=== PATIENT | female | born 1955 | race Caucasian/White ===

== ENCOUNTER → 2017-09-06 | Day surgery (SDC) | payer BC ==
[~2017-09-06] MED LIST: AMITIZA24 MCG PO; AMITRIPTYLINE H25 MG PO; ATORVASTATIN CA20 MG PO; CALCIUM 500+D1 EACH PO; CO Q-10100 MG PO; DIOVAN80 MG PO; FENTANYL CITRATE/PF 100MCG/2 ML INJ ONE; FERROUS SULFAT325 MG PO; GLUCOSAMINE1000 MG PO; IPRATROPIU0.2 MG/1 M NEB; LIDOCAINE HCL 2% LOCAL INJ 5 ML SDV VIAL INJ ONE; LISINOPRIL2.5 MG PO; METFORMIN HCL500 MG PO; METOPROLOL TART50 MG PO; MIDAZOLAM HCL 2 MG/2 ML VIAL ONE; MULTI-VITAMIN1 EACH PO; NEXIUM40 MG PO; PRAVASTATIN SOD40 MG PO; PROPOFOL IV EMULSION 10 MG/ML 50 ML VIAL ONE; VIMOVO PO
--- OUTSIDE RECORDS SUMMARY | 2017-09-06 07:17 | XMS REPORT | Summary of Care ---
Author Author NOHEMI CONTEH M.D. Organization Unknown Address Unknown Phone Unavailable Care Team Providers Care Associate Professor Of Biblical Studies Name Role Phone NOHEMI CONTEH M.D. Unavailable Unavailable Unavailable Unavailable Functional Status Name Dates Details Functional status health issues are not documented Status: Name Dates Details Cognitive status health issues are not documented Status: Problems Name Dates Details Rhinitis, chronic (472.0, J31.0) Status: Active Neuropathy (355.9, G62.9) Status: Active Family history of Malignant neoplasm of colon, unspecified part of colon (153.9 , C18.9) Status: Active Bladder prolapse Status: Active History of hydrocephalus (V12.49, Z86.69) Status: Resolved Hiatal hernia (553.3, K44.9) Status: Active History of stroke (V12.54, Z86.73) Status: Resolved Cervical spondylosis without myelopathy (721.0, M47.812) Status: Active Cervical spinal stenosis (723.0, M48.02) Status: Active Abdominal pain, diffuse (789.00, R10.84) Status: Active Nausea (787.02, R11.0) Status: Active Colon polyp (211.3, K63.5) Status: Active Controlled type 2 diabetes mellitus without complication, without long-term current use of insulin (250.00, E11.9) Status: Active Essential hypertension (401.9, I10) Status: Active Gastroesophageal reflux disease (530.81, K21.9) Status: Active Hyperlipidemia (272.4, E78.5) Status: Active Paroxysmal SVT (supraventricular tachycardia) (427.0, I47.1) Status: Active Breast cancer screening by mammogram (V76.12, Z12.31) Status: Active Contracture of joint of left foot (718.47, M24.575) Status: Active Tubular adenoma of colon (211.3, D12.6) Status: Active Screen for colon cancer (V76.51, Z12.11) Status: Active Abnormal CBC (790.6, R79.89) Status: Active Other iron deficiency anemia (280.8, D50.8) Status: Active Medications Name Dates Details Metoprolol Tartrate 50 MG Oral Tablet TAKE 1 TABLET EVERY 12 HOURS Quantity: 180 SATTAR M.D., NOHEMI * Start : 18-Aug-2017 Active Esomeprazole Magnesium 40 MG Oral Capsule Delayed Release take 1 capsule every morning * Quantity: 90 Refills: 1 SATTAR M.D., NOHEMI * Start : 16-Jul-2017 Active Amitriptyline HCl - 25 MG Oral Tablet TAKE 1 TABLET BY MOUTH AT BEDTIME * Refills: 2 Active 30 Tablet Pack Multivitamins TABS * Refills: 0 Active Calcium CAPS * Refills: 0 Active Vitamin D CAPS * Refills: 0 Active MetFORMIN HCl - 500 MG Oral Tablet TAKE 1 TABLET TWICE A DAY PREMEAL BREAKFAST AND SUPPER * Quantity: 180 Refills: 0 SATTAR M.D., NOHEMI * Start : 09-Jun-2017 Active Atorvastatin Calcium 40 MG Oral Tablet TAKE 1 TABLET DAILY * Quantity: 90 Refills: 0 SATTAR M.D., NOHEMI * Start : 15-Aug-2016 Active Co Q 10 CAPS * Refills: 0 Active Ipratropium [place] 0.03 % Nasal Solution USE 2 SPRAYS IN EACH NOSTRIL 3 TIMES DAILY NEEDED FOR NASAL CONGESTION * Quantity: 1 Refills: 0 * Start : 14-Jul-2017 Active 30 ML Bottle Lisinopril 5 MG Oral Tablet TAKE 1/2 TABLET BY MOUTH EVERY DAY * Quantity: 90 Refills: 0 SATTAR M.D., NOHEMI * Start : 14-Jul-2017 Active Ferrous Sulfate 325 (65 Fe) MG Oral Tablet TAKE 1 TABLET 3 TIMES DAILY WITH FOOD. * Quantity: 90 Refills: 1 SATTAR M.D., NOHEMI * Start : 11-Aug-2017 Active Colace 100 MG Oral Capsule 1 TO 2 CAPS PO DAILY FOR CONSTIPATION * Quantity: 60 Refills: 2 SATTAR M.D., NOHEMI * Start : 11-Aug-2017 Active Allergies and Adverse Reactions Name Dates Details No Known Drug Allergies (Allergy) Status: Active Past Medical History Name Dates Details History of hydrocephalus (V12.49, Z86.69) Status: Resolved History of stroke (V12.54, Z86.73) Status: Resolved Procedures Procedure Dates Details [QLH] CBC (INCLUDES DIFF/PLT) Date: 05-Aug-2017 [Q] IRON, TIBC AND FERRITIN PANEL Date: 05-Aug-2017 [place] Digital Mammo Screening Marcell [id number] Date: 14-Jul-2017 History of Foot surgery Completed History of Hysterectomy total Completed History of Hydrocele repair Completed Immunization Name Dates Details Pneumococcal polysaccharide vaccine, 23 valent on: 28-Sep-2010 Zoster (Zostavax) on: 29-Jan-2014 Flulaval Quadrivalent Intramuscular Suspension on: 01-Jan-2016 Fluzone Quadrivalent 0.5 ML Intramuscular Suspension on: 20-Dec-2016 Family History Name Dates Details Family history of hypertension (V17.49, Z82.49) Status: Active Family history of hyperlipidemia (V18.19, Z83.49) Status: Active Family history of diabetes mellitus (V18.0, Z83.3) Status: Active Name Dates Details Family history of malignant neoplasm of prostate (V16.42, Z80.42) Status: Active Family history of Malignant neoplasm of colon, unspecified part of colon (153.9 , C18.9) Status: Active Social History Name Dates Details - Status: Name Dates Details Never smoker Vital Signs Date Test Result Details No Known Vitals to report Results Date Description Value Details [id number] [QL] LIPID PANEL CHOLESTEROL, TOTAL 141 mg/dl (Normal) Range: <200 HDL CHOLESTEROL 61 mg/dl (Normal) Range: >50 TRIGLYCERIDES 106 mg/dl (Normal) Range: <150 LDL-CHOLESTEROL 61 {MG/DL__CAL} (Normal) Comments: Reference range: <100 Desirable range <100 mg/dL for primary prevention; <70 mg/dL for patients with CHD or diabetic patients with > or=2 CHD risk factors. LDL-C is now calculated using the Bina calculation, which is a validated novel method providing better accuracy than the Friedewald equation in the estimation of LDL- C. Jose NAPIER et al. SUSAN. 2013;310(19): 5355-4444 (http:// education.[employer]/faq/LCD679) CHOL/HDLC RATIO 2.3 {CALC} (Normal) Range: <5.0 NON HDL CHOLESTEROL 80 {MG/DL__CAL} (Normal) Range: <130 Comments: For patients with diabetes plus 1 major ASCVD risk factor, treating to a non-HDL-C goal of <100 mg/dL (LDL-C of <70 mg/dL) is considered a therapeutic option. [id number] [[facility]] MICROALBUMIN, RANDOM URINE (W/CREATININE) Comments: Reference RangeNot established CREATININE, RANDOM URINE 41 mg/dl (Normal) Range: 20-320 MICROALBUMIN 0.2 mg/dl (Normal) Comments: Reference RangeNot established MICROALBUMIN/CREATININE RATIO, RANDOM URINE 5 {MCG/MG_CRE} (Normal) Range : <30 Comments: The ADA defines abnormalities in albuminexcretion as follows: Category Result (mcg/mg creatinine) Normal < 30Microalbuminuria 30-299 Clinical albuminuria > FN=365 The ADA recommends that at least two of threespecimens collected within a 3-6 month period beabnormal before considering a patient to bewithin a diagnostic category. [id number] [QL] CMP W/EGFR GLUCOSE 94 mg/dl (Normal) Range: 65-99 Comments: Fasting reference interval UREA NITROGEN (BUN) 14 mg/dl (Normal) Range: 7-25 CREATININE 0.61 mg/dl (Normal) Range: 0.50-0.99 Comments: For patients >49 years of age, the reference limitfor Creatinine is approximately 13% higher for peopleidentified as -[place]une[place]. eGFR NON- 96 {ML/MIN/1.7} (Normal) Range: > OR=60 eGFR 112 {ML/MIN/1.7} (Normal) Range: > OR=60 BUN/CREATININE RATIO NOT APPLICABLE {CALC} Range: 6-22 SODIUM 145 mmol/L (Normal) Range: 135-146 POTASSIUM 3.9 mmol/L (Normal) Range: 3.5-5.3 CHLORIDE 108 mmol/L (Normal) Range: 98-110 CARBON DIOXIDE 29 mmol/L (Normal) Range: 20-31 CALCIUM 9.1 mg/dl (Normal) Range: 8.6-10.4 PROTEIN, TOTAL 6.0 g/dl (Below low threshold) Range: 6.1-8.1 ALBUMIN 3.9 g/dl (Normal) Range: 3.6-5.1 GLOBULIN 2.1 {G/DL__CALC} (Normal) Range: 1.9-3.7 ALBUMIN/GLOBULIN RATIO 1.9 {CALC} (Normal) Range: 1.0-2.5 BILIRUBIN, TOTAL 0.4 mg/dl (Normal) Range: 0.2-1.2 ALKALINE PHSPHATASE 89 u/l (Normal) Range: 33-130 AST 17 u/l (Normal) Range: 10-35 ALT 21 u/l (Normal) Range: 6-29 [id number] [QLH] CBC (INCLUDES DIFF/PLT) WHITE BLOOD CELL COUNT 5.8 {Thousand/u} (Normal) Range: 3.8-10.8 RED BLOOD CELL COUNT 3.82 {Million/uL} (Normal) Range: 3.80-5.10 HEMOGLOBIN 11.2 g/dl (Below low threshold) Range: 11.7-15.5 HEMATOCRIT 33.2 % (Below low threshold) Range: 35.0-45.0 MCV 86.9 fL (Normal) Range: 80.0-100.0 MCH 29.3 pg (Normal) Range: 27.0-33.0 MCHC 33.7 g/dl (Normal) Range: 32.0-36.0 RDW 13.3 % (Normal) Range: 11.0-15.0 PLATELET COUNT 187 {Thousand/u} (Normal) Range: 140-400 MPV 13.1 fL (Above high threshold) Range: 7.5-12.5 ABSOLUTE NEUTROPHILS 3155 {cells/uL} (Normal) Range: 8067-8842 ABSOLUTE LYMPHOCYTES 2094 {cells/uL} (Normal) Range: 850-3900 ABSOLUTE MONOCYTES 360 {cells/uL} (Normal) Range: 200-950 ABSOLUTE EOSINOPHILS 139 {cells/uL} (Normal) Range: 15-500 ABSOLUTE BASOPHILS 52 {cells/uL} (Normal) Range: 0-200 NEUTROPHILS 54.4 % (Normal) LYMPHOCYTES 36.1 % (Normal) MONOCYTES 6.2 % (Normal) EOSINOPHILS 2.4 % (Normal) BASOPHILS 0.9 % (Normal) [id number] [QLH] TSH, 3RD GENERATION W/REFLEX TO FT4 Comments: REPORT COMMENT:FASTING:YES TSH, 3RD GENERATION W/REFLEX TO FT4 3.15 {MIU/L} (Normal) Range: 0.40- 4.50 [id number] [Q] IRON, TIBC AND FERRITIN PANEL IRON, TOTAL 70 {mcg/dl} (Normal) Range: 45-160 IRON BINDING CAPACITY 359 {mcg/dL__ca} (Normal) Range: 250-450 % SATURATION 19 {%__CALC} (Normal) Range: 11-50 FERRITIN 8 ng/ml (Below low threshold) Range: 20-288 [id number] [QLH] CBC (INCLUDES DIFF/PLT) WHITE BLOOD CELL COUNT 7.2 {Thousand/u} (Normal) Range: 3.8-10.8 RED BLOOD CELL COUNT 3.88 {Million/uL} (Normal) Range: 3.80-5.10 HEMOGLOBIN 11.2 g/dl (Below low threshold) Range: 11.7-15.5 HEMATOCRIT 33.9 % (Below low threshold) Range: 35.0-45.0 MCV 87.4 fL (Normal) Range: 80.0-100.0 MCH 28.9 pg (Normal) Range: 27.0-33.0 MCHC 33.0 g/dl (Normal) Range: 32.0-36.0 RDW 13.2 % (Normal) Range: 11.0-15.0 PLATELET COUNT 193 {Thousand/u} (Normal) Range: 140-400 MPV 12.8 fL (Above high threshold) Range: 7.5-12.5 ABSOLUTE NEUTROPHILS 4651 {cells/uL} (Normal) Range: 2171-5767 ABSOLUTE LYMPHOCYTES 1894 {cells/uL} (Normal) Range: 850-3900 ABSOLUTE MONOCYTES 446 {cells/uL} (Normal) Range: 200-950 ABSOLUTE EOSINOPHILS 158 {cells/uL} (Normal) Range: 15-500 ABSOLUTE BASOPHILS 50 {cells/uL} (Normal) Range: 0-200 NEUTROPHILS 64.6 % (Normal) LYMPHOCYTES 26.3 % (Normal) MONOCYTES 6.2 % (Normal) EOSINOPHILS 2.2 % (Normal) BASOPHILS 0.7 % (Normal) [id number] [QL] VITAMIN B12/FOLATE, SERUM PANEL Comments: REPORT COMMENT:COLLECTION KIT GIVEN TO PATIENT. PATIENT ADVISED TO RETURN. VITAMIN B12 420 pg/ml (Normal) Range: 200-1100 FOLATE, SERUM 22.7 ng/ml (Normal) Comments: Reference Range Low: <3.4 Borderline: 3.4- 5.4 Normal: >5.4 [id number] [Q] FECAL GLOBIN BY IMMUNOCHEMISTRY FECAL GLOBIN BY IMMUNOCHEMISTRY (Abnormal) Comments: FECAL GLOBIN BY IMMUNOCHEMISTRY MICRO NUMBER: [id number] TEST STATUS: FINAL SPECIMEN SOURCE: INSURE (TM) FOBT TEST CARD SPECIMEN QUALITY: ADEQUATE RESULT: Detected Plan of Care Name Dates Details Planned Observations Planned Goals not documented Planned Encounters Appointment; NOHEMI CONTEH M.D. On: 13-Jan-2018 13:15 Interventions Provided Medication Changes* Metoprolol Tartrate 50 MG Oral Tablet - Renew Instructions Name Dates Details Instructions not documented Encounters Appointment; NOHEMI CONTEH M.D. Encounter Diagnosis: Problem not documented On: 16-Jul-2016 13:30 Appointment; NOHEMI CONTEH M.D. Encounter Diagnosis: Problem not documented On: 22-Aug-2016 13:00 Appointment; NOHEMI CONTEH M.D. Encounter Diagnosis: Problem not documented On: 09-Oct-2016 13:00 Appointment; NOHEMI CONTEH M.D. Encounter Diagnosis: Problem not documented On: 09-Jan-2017 13:00 Appointment; NOHEMI CONTEH M.D. Encounter Diagnosis: Problem not documented On: 14-Jul-2017 13:00
--- NOTE | 2017-09-06 11:27 | Operative Report ---
DATE OF PROCEDURE: September 06, 2017 REFERRING PHYSICIAN: Dr. Nohemi Conteh. PROCEDURE PERFORMED: Esophagogastroduodenoscopy. INDICATIONS FOR ESOPHAGOGASTRODUODENOSCOPY: Upper abdominal pain, heartburn indigestion, anemia. MEDICATION: Patient was done under MAC. Please see anesthesiologist's note. PROCEDURE: With the patient in the left lateral decubitus position, the flexible fiberoptic Olympus gastroscope was introduced into the esophagus under direct visualization without any difficulty. There was some patchy erythema noted in the distal esophagus. The scope was then advanced with ease into the stomach, traversing a large hiatal hernia approximately 10 cm long with a paraesophageal component. The mucosa overlying the antrum revealed some patchy erythema and moderate edema, and biopsies were obtained and sent to stain for H. pylori. Some hyperplastic-appearing polyps were noted in the body of the stomach. Some were partially excised with the cold biopsy forceps. Pylorus appeared to be of normal contour and shape, was intubated with ease, and the scope was advanced all the way to the 2nd portion of the duodenum. Biopsies were obtained from the proximal 2nd portion to rule out sprue considering patient's history of iron deficiency anemia. The mucosa overlying the duodenal bulb appeared to be within normal limits. The scope was then withdrawn back into the stomach and retroflexed, and the previously described hiatal hernia was also noted in the retroflexed position. The scope was then straightened out. It was subsequently withdrawn. Patient tolerated the procedure well. IMPRESSION: 1. Distal esophagitis. 2. Large hiatal hernia with a paraesophageal component. 3. Gastric polyps, body, some partially excised with the cold biopsy forceps. 4. Gastritis, biopsied. Biopsies sent to stain for H. pylori. 5. Rule out sprue. PLAN: Follow up histology. Initiate Protonix 40 mg 1 p.o. q.a.m. a.c. Job#: [id number] EV cc: NOHEMI CONTEH MD
== END | disposition home or self-care (01) ==
LOC: OR 07:15
PROVIDERS: ATTEND Internal Medicine Gastroenterology
DX: D64.9 Anemia, unspecified (principal); K31.7 Polyp of stomach and duodenum; K29.70 Gastritis, unspecified, without bleeding; K20.9 Esophagitis, unspecified; K44.9 Diaphragmatic hernia without obstruction or gangrene; K21.9 Gastro-esophageal reflux disease without esophagitis; K22.8 Other specified diseases of esophagus; R19.5 Other fecal abnormalities; K59.00 Constipation, unspecified; E11.9 Type 2 diabetes mellitus without complications; I10 Essential (primary) hypertension; G62.9 Polyneuropathy, unspecified; Z01.810 Encounter for preprocedural cardiovascular examination; Z79.1 Long term (current) use of non-steroidal anti-inflammatories (NSAID); Z79.84 Long term (current) use of oral hypoglycemic drugs; Z68.25 Body mass index [BMI] 25.0-25.9, adult; Z86.73 Personal history of transient ischemic attack (TIA), and cerebral infarction without residual deficits; Z80.0 Family history of malignant neoplasm of digestive organs
CPT/HCPCS: 36415; 43239; 82948; 93005; J2001; J2250

== ENCOUNTER 2018-03-29 09:22 | Emergency (ER) | payer BC ==
[~2018-03-29] VITALS: Ht 157.5 cm; Wt 62.6 kg
[~2018-03-29 09:22] MED LIST changes: -FENTANYL CITRATE/PF 100MCG/2 ML INJ ONE; -LIDOCAINE HCL 2% LOCAL INJ 5 ML SDV VIAL INJ ONE; -MIDAZOLAM HCL 2 MG/2 ML VIAL ONE; -PROPOFOL IV EMULSION 10 MG/ML 50 ML VIAL ONE
--- OUTSIDE RECORDS SUMMARY | 2018-03-29 09:24 | XMS REPORT | Summary of Care ---
Author Tania Fernandez LVN Unknown Address Unknown Phone Unavailable Care Team Providers Care Senior Technical Support Engineer Name Role Phone NOHEMI CONTEH M.D. Unavailable Unavailable Unavailable Unavailable Functional Status Name Dates Details Functional status health issues are not documented Status: Name Dates Details Cognitive status health issues are not documented Status: Problems Name Dates Details Rhinitis, chronic (472.0, J31.0) Status: Active Neuropathy (355.9, G62.9) Status: Active Family history of Malignant neoplasm of colon, unspecified part of colon (153.9, C18.9) Status: Active History of hydrocephalus (V12.49, Z86.69) Status: Resolved Hiatal hernia (553.3, K44.9) Status: Active Cervical spondylosis without myelopathy (721.0, M47.812) Status: Active Cervical spinal stenosis (723.0, M48.02) Status: Active Abdominal pain, diffuse (789.00, R10.84) Status: Active Nausea (787.02, R11.0) Status: Active Colon polyp (211.3, K63.5) Status: Active Gastroesophageal reflux disease (530.81, K21.9) Status: Active Paroxysmal SVT (supraventricular tachycardia) (427.0, I47.1) Status: Active Breast cancer screening by mammogram (V76.12, Z12.31) Status: Active Contracture of joint of left foot (718.47, M24.575) Status: Active Tubular adenoma of colon (211.3, D12.6) Status: Active Screen for colon cancer (V76.51, Z12.11) Status: Active Abnormal CBC (790.6, R79.89) Status: Active Other iron deficiency anemia (280.8, D50.8) Status: Active History of stroke (V12.54, Z86.73) Status: Resolved Controlled type 2 diabetes mellitus without complication, without long-term current use of insulin (250.00, E11.9) Status: Active Essential hypertension (401.9, I10) Status: Active Hyperlipidemia (272.4, E78.5) Status: Active Iron deficiency anemia (280.9, D50.9) Status: Active Need for hepatitis C screening test (V73.89, Z11.59) Status: Active Need for shingles vaccine (V04.89, Z23) Status: Active Need for Tdap vaccination (V06.1, Z23) Status: Active Bladder prolapse Status: Active Medications Name Dates Details Metoprolol Tartrate 50 MG Oral Tablet TAKE 1 TABLET EVERY 12 HOURS Quantity: 180 SATTAR M.D., NOHEMI * Start : 19-May-2017 Active Esomeprazole Magnesium 40 MG Oral Capsule Delayed Release take 1 capsule every morning * Quantity: 90 Refills: 1 SATTAR M.D., NOHEMI * Start : 16-Jul-2017 Active Amitriptyline HCl - 50 MG Oral Tablet TAKE 1 TABLET DAILY. * Refills: 0 Active Multivitamins TABS * Refills: 0 Active Calcium CAPS * Refills: 0 Active Vitamin D CAPS * Refills: 0 Active MetFORMIN HCl - 500 MG Oral Tablet TAKE 1 TABLET TWICE A DAY, PRE-MEAL BREAKFAST AND SUPPER * Quantity: 180 Refills: 0 SATTAR M.D., NOHEMI * Start : 12-Mar-2018 Active Atorvastatin Calcium 40 MG Oral Tablet TAKE 1 TABLET DAILY * Quantity: 90 Refills: 0 SATTAR M.D., NOHEMI * Start : 15-Aug-2016 Active Co Q 10 CAPS * Refills: 0 Active Ipratropium [place] 0.03 % Nasal Solution USE 2 SPRAYS IN EACH NOSTRIL 3 TIMES DAILY NEEDED FOR NASAL CONGESTION * Quantity: 1 Refills: 0 * Start : 14-Jul-2017 Active 30 ML Bottle Lisinopril 5 MG Oral Tablet TAKE 1/2 TABLET BY MOUTH EVERY DAY * Quantity: 45 Refills: 0 SATTAR M.D., NOHEMI * Start : 14-Jul-2017 Active Ferrous Sulfate 325 (65 Fe) MG Oral Tablet TAKE 1 TABLET 3 TIMES DAILY WITH FOOD. * Quantity: 90 Refills: 1 SATTAR M.D., NOHEMI * Start : 13-Mar-2018 Active Colace 100 MG Oral Capsule 1 TO 2 CAPS PO DAILY FOR CONSTIPATION * Quantity: 60 Refills: 2 SATTAR M.D., NOHEMI * Start : 11-Aug-2017 Active Shingrix 50 MCG Intramuscular Suspension Reconstituted IM: 0.5 mL 2-dose series at 0 and 2 to 6 months * Quantity: 1 Refills: 1 NOHEMI CONTEH M.D. * Start : 13-Jan-2018 Active Tdap (Adacel) IM X 1 * Quantity: 1 Refills: 0 SATTAR Sal, NOHEMI * Start : 13-Jan-2018 Active 0.5 ML Syringe Allergies and Adverse Reactions Name Dates Details No Known Drug Allergies (Allergy) Status: Active Past Medical History Name Dates Details History of hydrocephalus (V12.49, Z86.69) Status: Resolved History of stroke (V12.54, Z86.73) Status: Resolved Procedures Procedure Dates Details History of Foot surgery Completed History of Hysterectomy total Completed History of Hydrocele repair Completed Immunization Name Dates Details Pneumococcal polysaccharide vaccine, 23 valent on: 28-Sep-2010 Zoster (Zostavax) on: 29-Jan-2014 Flulaval Quadrivalent Intramuscular Suspension on: 01-Jan-2016 Fluzone Quadrivalent 0.5 ML Intramuscular Suspension on: 20-Dec-2016 Fluarix Quadrivalent 0.5 ML Intramuscular Suspension Prefilled Syringe on: 29-Dec-2017 Family History Name Dates Details Family history of hypertension (V17.49, Z82.49) Status: Active Family history of hyperlipidemia (V18.19, Z83.438) Status: Active Family history of diabetes mellitus (V18.0, Z83.3) Status: Active Name Dates Details Family history of malignant neoplasm of prostate (V16.42, Z80.42) Status: Active Family history of Malignant neoplasm of colon, unspecified part of colon (153.9, C18.9) Status: Active Social History Name Dates Details - Status: Name Dates Details Never smoker Vital Signs Date Test Result Details No Known Vitals to report Results Date Description Value Details Results not documented Plan of Care Name Dates Details Planned Observations Planned Goals not documented Planned Encounters Appointment; NOHEMI CONTEH M.D. On: 14-Apr-2018 13:30 Interventions Provided Medication Changes* Ferrous Sulfate 325 (65 Fe) MG Oral Tablet - Renew Instructions Name [...] Diagnosis: Problem not documented On: 14-Jul-2017 13:00 Appointment; NOHEMI CONTEH M.D. Encounter Diagnosis: Problem not documented On: 13-Jan-2018 13:15 Appointment; NOHEMI CONTEH M.D. Encounter Diagnosis: Problem not documented On: 13-Jan-2018 13:15
[2018-03-29 10:23] LABS: BASOPHILS # (AUTO) 0.1 (0.0-0.1); BASOPHILS % 0.6 % (0.0-1.0); EOSINOPHILS # (AUTO) 0.1 (0.0-0.4); EOSINOPHILS % 1.4 % (0.0-6.0); HEMATOCRIT 37.3 % (34.2-44.1); HEMOGLOBIN 12.1 g/dL (12.0-16.0); LYMPHOCYTES # (AUTO) 2.3 (1.0-3.2); LYMPHOCYTES % 29.5 % (18.0-39.1); MEAN CORPUSCULAR HEMOGLOBIN 29.8 pg (28-32); MEAN CORPUSCULAR HGB CONC 32.4 g/dL (31-35); MEAN CORPUSCULAR VOLUME 91.9 fL (81-99); MONOCYTES # (AUTO) 0.5 (0.2-0.8); MONOCYTES % 6.7 % (4.4-11.3); NEUTROPHILS # (AUTO) 4.8 (2.1-6.9); NEUTROPHILS % 61.7 % (38.7-80.0); PLATELET COUNT 212 x10e3/uL (140-360); RED BLOOD COUNT 4.06 x10e6/uL (3.6-5.1); RED CELL DISTRIBUTION WIDTH 12.7 % (11.7-14.4)
[2018-03-29 10:29] LABS: CLARITY,URINE CLEAR (CLEAR); COLOR,URINE YELLOW (YELLOW)
[2018-03-29 10:30] LABS: BILIRUBIN,URINE NEGATIVE (NEGATIVE); KETONES,URINE NEGATIVE (NEGATIVE); LEUKOCYTE ESTERASE ,URINE NEGATIVE (NEGATIVE); NITRITE,URINE NEGATIVE (NEGATIVE); PROTEIN,URINE DIPSTICK NEGATIVE (NEGATIVE); URINE UROBILINOGEN 0.2 mg/dL (0.2 - 1)
[2018-03-29 10:34] LABS: INR 0.92; PARTIAL THROMBOPLASTIN TIME 29.1 seconds (23.8-35.5); PROTHROMBIN TIME 13.2 seconds (11.9-14.5)
[2018-03-29 10:38] LABS: WBC,URINE (MAN) 0-5 /HPF (0-5)
[2018-03-29 10:45] LABS: ALANINE AMINOTRANSFERASE 48 IU/L (0-55); ALBUMIN 3.6 g/dL (3.5-5.0); ALBUMIN/GLOBULIN RATIO 1.4 (0.8-2.0); ALKALINE PHOSPHATASE 92 IU/L (40-150); ANION GAP 14.6 mmol/L (8-16); BLOOD UREA NITROGEN 13 mg/dL (7-26); BUN/CREATININE RATIO 19 (6-25); CALCIUM 9.2 mg/dL (8.4-10.2); CARBON DIOXIDE 24 mmol/L (22-29); CHLORIDE 107 mmol/L (98-107); CREATINE KINASE 58 IU/L (29-168); CREATININE, SERUM 0.68 mg/dL (0.57-1.11); EST GLOMERULAR FILTRATION RATE > 60 ML/MIN (60-); GLUCOSE 104 mg/dL (74-118); POTASSIUM 3.6 mmol/L (3.5-5.1); SODIUM 142 mmol/L (136-145)
[2018-03-29 10:46] LABS: MAGNESIUM 2.4 MG/DL (1.3-2.1)
--- NOTE | 2018-03-29 10:59 | NUR ---
PATIENT TO ROOM 11 AND TAKEN DIRECTLY TO RADIOLOGY
[2018-03-29] MEDS ORDERED: IOPAMIDOL 370 MG/ML 200 ML INFUS..BTL INJ ONE (11:33)
[2018-03-29] MEDS ORDERED: SODIUM CHLORIDE 0.9% 50ML 50 ML ONE (11:33)
--- NOTE | 2018-03-29 12:03 | Diagnostic Imaging Report ---
CT Abdomen And Pelvis with Intravenous Contrast INDICATION: Epigastric pain, history of hiatal hernia and GERD TECHNIQUE: Thin collimation axial images obtained from the diaphragm to the level of the pubic symphysis following the uneventful administration of 100 cc of low osmolar, nonionic intravenous contrast. Dose reduction techniques used: Automated exposure control, adjustment of the mAs and/or kVp according to patient size, standardized low-dose protocol, and/or iterative reconstruction technique. RADIATION DOSE: Total DLP: 311.9 mGy*cm Estimated effective dose: (DLP x 0.015 x size factor) mSv CTDIvol has been reviewed. It is below the limits set by the Radiation Protocol Committee (RPC). COMPARISON: None. ABDOMEN FINDINGS: Lung Bases: Large hiatal hernia containing stomach. The esophagus proximal to the hiatal hernia is not dilated. There is subsegmental atelectasis in the left lung base adjacent to the hiatal hernia. The heart is normal in size. No pulmonary infiltrates. Liver: Decreased attenuation consistent with steatosis. No evidence for mass. Gallbladder: Present and appears normal. No biliary ductal dilatation. Pancreas: Normal attenuation without mass or ductal dilatation. Spleen: Normal in size. No evidence of mass.. Adrenal Glands: No evidence for mass. Kidneys: Right: Normal enhancement. Subcentimeter cyst in the anterior interpolar cortex. No hydronephrosis. Left: Normal enhancement. No soft tissue mass. No hydronephrosis. Lymph Nodes: No enlarged abdominal or retroperitoneal lymph nodes.. Aorta: Normal in diameter PELVIS FINDINGS: Bowel: Stomach: No focal mural thickening or perigastric inflammation. Small Bowel: Normal in caliber with normal wall thickness. Large Bowel: Mild burden of diverticulosis. No associated inflammation. Mild to moderate burden of stool throughout the large bowel. Appendix: Not visualized and may be absent or collapsed. Bladder: Normal. The uterus is absent. There are no adnexal masses. There are calcifications along the gonadal veins. Peritoneum/retroperitoneum: No free fluid or fluid collection. Bones: There is a bone island in the roof of the right acetabulum. No destructive osseous lesions.. IMPRESSION: 1. Large hiatal hernia containing stomach. Mild burden of diverticula versus coli. No bowel obstruction or inflammation. Mild to moderate burden of stool in the large bowel. 2. Steatosis. Signed by: Dr. Lyle Hill MD on 03/29/2018 12:00 PM
--- NOTE | 2018-03-29 12:06 | Diagnostic Imaging Report ---
EXAMINATION: CHEST SINGLE (PORTABLE) COMPARISON: CT abdomen/pelvis 1119 hours INDICATION: Epigastric pain, history of hiatal hernia DISCUSSION: Frontal view of the chest obtained at 1116 hours. HEART AND MEDIASTINUM: Large hiatal hernia. Mild aortic ectasia LINES: None. LUNGS: The lungs are well-inflated. Subsegmental atelectasis in the left lung base. Central vasculature is mildly prominent. No interstitial thickening. PLEURA: No pleural effusion or pneumothorax. BONES AND SOFT TISSUES: No focal osseous lesion. The soft tissues are normal. IMPRESSION: Large hiatal hernia. Mild vascular congestion. Signed by: Dr. Lyle Hill MD on 03/29/2018 12:02 PM
[2018-03-29] MEDS ORDERED: LIDOCAINE VISC 2% SOLN 15 ML UDC ONE (13:01)
[2018-03-29] MEDS ORDERED: BELLADONNA ALK/PHENOBARBITAL 5 ML UDC ONE (13:01)
[2018-03-29] MEDS ORDERED: MAGNESIUM/ALUMINUM/SIMETHICONE 30 ML UDC ONE (13:01)
[2018-03-29] MEDS ORDERED: BELLADONNA ALK/PHENOBARBITAL 5 ML UDC PO ONE (13:15)
[2018-03-29] MEDS ORDERED: MAGNESIUM/ALUMINUM/SIMETHICONE 30 ML UDC PO ONE (13:15)
[2018-03-29] MEDS ORDERED: LIDOCAINE VISC 2% SOLN 15 ML UDC PO ONE (13:15)
== END 2018-03-29 13:55 | disposition home or self-care (01) ==
LOC: ER 09:22
DX: R10.13 Epigastric pain (principal); R11.0 Nausea; K44.9 Diaphragmatic hernia without obstruction or gangrene
CPT/HCPCS: 36415; 71045; 74177; 80053; 81001; 82150; 82550; 82553; 83605; 83690; 83735; 84484; 85025; 85610; 85730; 87086; 93005; 99284; Q9967

== ENCOUNTER → 2018-04-11 | Day surgery (SDC) | payer BC ==
[~2018-04-11] MED LIST changes: +FENTANYL CITRATE/PF 100MCG/2 ML INJ ONE; +IPRATROPIU0.2 MG/1 M INH; -IPRATROPIU0.2 MG/1 M NEB; +LIDOCAINE HCL 2% LOCAL INJ 5 ML SDV VIAL INJ ONE; +PROPOFOL IV EMULSION 10 MG/ML 50 ML VIAL ONE
--- NOTE | 2018-04-11 19:56 | Operative Report ---
DATE OF PROCEDURE: April 11, 2018 REFERRING PHYSICIAN: Dr. Nohemi Conteh. PROCEDURE PERFORMED: Esophagogastroduodenoscopy with biopsies and esophageal dilatation. INDICATIONS FOR PROCEDURE: Dysphagia, worsening heartburn, and indigestion. MEDICATION: Patient was done under MAC. Please see anesthesiologist's note. PROCEDURE: With the patient in left lateral decubitus position, a flexible fiberoptic Olympus gastroscope was introduced into the esophagus under direct visualization without any difficulty. There was some patchy erythema noted in distal esophagus. There was a mild stricture noted at the GE junction that was dilated to size 52-Spanish Solorzano. The scope was then advanced with ease into the stomach traversing a large approximately 10 cm in size hiatal hernia with a paraesophageal component. The mucosa overlying the antrum and the body revealed some diffuse erythema and low-grade to moderate edema and biopsies were obtained and sent to stain for H. pylori. Pylorus appeared to be of normal contour and shape and was intubated with ease and the scope was advanced all the way to the 2nd portion of the duodenum. The scope was then withdrawn slowly. Mucosa overlying the proximal 2nd portion and the duodenal bulb appeared to be within normal limits. The scope was then withdrawn back into the stomach and retroflexed and a large hiatal hernia described previously was also noted in the retroflexed position. The scope was then straightened out and was subsequently withdrawn. Patient tolerated the procedure well. IMPRESSION 1. Mild distal esophagitis. 2. Esophageal stricture at gastroesophageal junction at 30 cm. We will need incisors dilated to size 52-Spanish Solorzano. 3. Approximately 10 cm hiatal hernia with a paraesophageal component. 4. Gastritis. PLAN: Follow up histology. Increase Nexium to 40 mg 1 p.o. a.c. b.i.d. Job#: [id number] RTY cc:NOHEMI CONTEH MD
--- OUTSIDE RECORDS SUMMARY | 2018-04-13 12:07 | XMS REPORT | Summary of Care ---
Author [facility] Unknown Address Unknown Phone Unavailable Care Team Providers Care Pillowcase Folder Name Role Phone NOHEMI CONTEH M.D. Unavailable [...] TAKE 1 TABLET DAILY. * Refills: 0 R.N. Active Multivitamins TABS * Refills: 0 R.N. Active Calcium CAPS * Refills: 0 R.N. Active Vitamin D CAPS * Refills: 0 R.N. Active MetFORMIN HCl - 500 MG Oral Tablet TAKE 1 TABLET TWICE A DAY, PRE-MEAL BREAKFAST AND SUPPER * Quantity: 180 Refills: 0 SATTAR M.D., NOHEMI * Start : 12-Mar-2018 Active Atorvastatin Calcium 40 MG Oral Tablet TAKE 1 TABLET DAILY * Quantity: 90 Refills: 0 SATTAR M.D., NOHEMI * Start : 15-Aug-2016 Active Co Q 10 CAPS * Refills: 0 R.N. Active Ipratropium Ogden 0.03 % Nasal Solution USE 2 SPRAYS IN EACH NOSTRIL 3 TIMES DAILY NEEDED FOR NASAL CONGESTION * Quantity: 1 Refills: 0 R.N. * Start : 14-Jul-2017 Active 30 ML [...] 6 months * Quantity: 1 Refills: 1 SATTAR M.D., NOHEMI * Start : 13-Jan-2018 Active Tdap (Adacel) IM X 1 * Quantity: 1 Refills: 0 SATTAR M.D., NOHEMI * Start : 13-Jan-2018 Active 0.5 [...] Appointment; NOHEMI CONTEH M.D. On: 14-Apr-2018 13:30 Instructions Name Dates Details Instructions not documented [...]
--- OUTSIDE RECORDS SUMMARY | 2018-04-13 12:07 | XMS REPORT ---
Author Author [facility] Address Unknown Phone Unavailable Care Team Providers Care Pourer Metal Name Role Phone Jonathan AMAYA Unavailable Unavailable Problems This patient has no known problems. Allergies, Adverse Reactions, Alerts This patient has no known allergies or adverse reactions. Medications This patient has no known medications. Results Test Description Test Time Test Comments Text Results Atomic Results Result Comments CHEST SINGLE (PORTABLE) 2018-03-29 12:00:00 [place] [address] Patient Name: OSCAR L[address] MR #: [id number] : 1955 Age/Sex: 62/F Req #: [id number] Adm Physician: Ordered by: JAYCOB AMAYA MD Report #: [id number] Location: ER Room/Bed: Procedure: [id number] DX/CHEST SINGLE (PORTABLE) Exam Date: 03/29/18 Exam Time: 1120 REPORT STATUS: Signed EXAMINATION: CHEST SINGLE (PORTABLE) COMPAR DYLAN: CT abdomen/pelvis 1119 hours INDICATION: Epigastric pain, history of hiatal hernia DISCUSSION: Frontal view of the chest obtained at 1116 hours. HEART AND MEDIASTINUM: Large hiatal hernia. Mild aortic ectasia LINES: None. LUNGS: The lungs are well-inflated. Subsegmental atelectasis in the left lung base. Central vasculature is mildly prominent. No interstitial thickening. PLEURA: No pleural effusion or pneumothorax. BONES AND SOFT TISSUES: No focal osseous lesion. The soft tissues are normal. IMPRESSION: Large hiatal hernia. Mild vascular congestion. Signed by: Dr. Skye Hill MD on 03/29/2018 12:02 PM Dictated By: SKYE HILL MD 01 Transcribed By: SHAHID on 03/29/181201 COPY TO: JAYCOB AMAYA MD CT ABDOMEN/PELVIS W 2018-03-29 11:55:00 [place] [address] Patient Name: [address]SCAR [address] MR #: [id number] : 1955 Age/Sex: 62/F Req #: [id number] Adm Physician: Ordered by: JAYCOB AMAYA MD Report #: [id number] Location: ER Room/Bed: Procedure: [id number] CT/CT ABDOMEN/PELVIS W Exam Date: 03/29/18 Exam Time: 1110 REPORT STATUS: Signed CT Abdomen And Pelvis with Intravenous Contrast I NDICATION: Epigastric pain, history of hiatal hernia and GERD TECHNIQUE: Thin collimation axial images obtained from the diaphragm to the level of the pubic symphysis following the uneventful administration of 100 cc of low osmolar, nonionic intravenous contrast. Dose reduction techniques used: Automated exposure control, adjustment of the mAs and/or kVp according to patient size, standardized low-dose protocol, and/or iterative reconstruction technique. RADIATION DOSE: Total DLP: 311.9 mGy*cm Estimated effective dose: (DLP x 0.015 x size factor) mSv CTDIvol has been reviewed. It is below the limits set by the Radiation Protocol Committee (RPC). COMPARISON: None. ABDOMEN FINDINGS: Lung Bases: Large hiatal hernia containing stomach. The esophagus proximal to the hiatal hernia is not dilated. There is subsegmental atelectasis in the left lung base adjacent to the hiatal hernia. The heart is normal in size. No pulmonary infil trates. Liver: Decreased attenuation consistent with steatosis. No evidence for mass. Gallbladder: Present and appears normal. No biliary ductal dilatation. Pancreas: Normal attenuation without mass or ductal dilatation. Spleen: Normal in size. No evidence of mass.. Adrenal Glands: No evidence for mass. Kidneys: Right: Normal enhancement. Subcentimeter cyst in the anterior interpolar cortex. No hydronephrosis. Left: Normal enhancement. No soft tissue mass. No hydronephrosis. Lymph Nodes: No enlarged abdominal or retroperitoneal lymph nodes.. Aorta: Normal in diameter PELVIS FINDINGS: Bowel: Stomach: No focal mural thickening or perigastric inflammation. Small Bowel: Normal in caliber with normal wall thickness. Large Bowel: Mild burden of diverticulosis. No associated inflammation. Mild to moderate burden of stool throughout the large bowel. Appendix: Not visualized and may be absent or collapsed. Bladde r: Normal. The uterus is absent. There are no adnexal masses. There are calcifications along the gonadal veins. Peritoneum/retroperitoneum: No free fluid or fluid collection. Bones: There is a bone island in the roof of the right acetabulum. No destructive osseous lesions.. IMPRESSION: 1. Large hiatal hernia containing stomach. Mild burden of diverticula versus coli. No bowel obstruction or inflammation. Mild to moderate burden of stool in the large bowel. 2. Steatosis. Signed by: Dr. Skye Hill MD on 03/29/2018 12:00 PM Dictated By: SKYE HILL MD 99 Transcribed By: SHAHID on 03/29/18 1200 COPY TO: JAYCOB AMAYA MD
== END | disposition home or self-care (01) ==
LOC: OR 13:42
PROVIDERS: ATTEND Internal Medicine Gastroenterology
DX: K21.0 Gastro-esophageal reflux disease with esophagitis (principal); K22.2 Esophageal obstruction; K44.9 Diaphragmatic hernia without obstruction or gangrene; R05 Cough; Z86.73 Personal history of transient ischemic attack (TIA), and cerebral infarction without residual deficits; I10 Essential (primary) hypertension; E11.42 Type 2 diabetes mellitus with diabetic polyneuropathy; K29.70 Gastritis, unspecified, without bleeding; K31.7 Polyp of stomach and duodenum; D64.9 Anemia, unspecified; Z80.0 Family history of malignant neoplasm of digestive organs; E78.00 Pure hypercholesterolemia, unspecified
CPT/HCPCS: 36415; 43239; 43450; 82948; J2001

== ENCOUNTER → 2018-05-08 | Outpatient (CLI) | payer BC ==
[~2018-05-08] MED LIST changes: -FENTANYL CITRATE/PF 100MCG/2 ML INJ ONE; -LIDOCAINE HCL 2% LOCAL INJ 5 ML SDV VIAL INJ ONE; -PROPOFOL IV EMULSION 10 MG/ML 50 ML VIAL ONE
--- NOTE | 2018-05-08 11:13 | Diagnostic Imaging Report ---
FLUOROSCOPIC BARIUM SWALLOW WITH UPPER GI HISTORY: Hiatal hernia CONTINUOUS LOFT OPERATOR: Brent Bravo MD Comparison: None. Procedure: Double contrast barium swallow and upper GI fluoroscopic exam was performed using thick and thin oral barium and effervescent crystals. Radiation Exposure: Fluoroscopy Time: 1.4 minutes Radiation dose: 33.5 mGy DISCUSSION: ESOPHAGUS: Motility: Within normal limits. Unremarkable. Mucosa: Unremarkable. Distensibility: Normal. GASTROESOPHAGEAL REFLUX: Moderate spontaneous gastroesophageal reflux. STOMACH: There is a large sliding hiatal hernia containing the fundus and proximal body. Normally distensible and demonstrates normal contours and mucosal pattern. DUODENUM/PROXIMAL SMALL BOWEL: Unremarkable in appearance. IMPRESSION: Large sliding hiatal hernia containing the fundus and proximal gastric body. Moderate spontaneous gastroesophageal reflux. Signed by: Dr. Brent Bravo MD on 05/08/2018 11:09 AM
== END ==
LOC: DX 08:38
PROVIDERS: ATTEND Surgery
DX: K44.9 Diaphragmatic hernia without obstruction or gangrene (principal)
CPT/HCPCS: 74220; 74246

== ENCOUNTER 2018-06-01 06:13 | Inpatient (IN) | payer BC ==
[2018-05-27 15:07] LABS: ALANINE AMINOTRANSFERASE 28 IU/L (0-55); ALBUMIN 3.8 g/dL (3.5-5.0); ALBUMIN/GLOBULIN RATIO 1.5 (0.8-2.0); ALKALINE PHOSPHATASE 119 IU/L (40-150); BLOOD UREA NITROGEN 12 mg/dL (7-26); BUN/CREATININE RATIO 17 (6-25); CALCIUM 9.3 mg/dL (8.4-10.2); CARBON DIOXIDE 26 mmol/L (22-29); CHLORIDE 105 mmol/L (98-107); CREATININE, SERUM 0.69 mg/dL (0.57-1.11); EST GLOMERULAR FILTRATION RATE > 60 ML/MIN (60-); GLUCOSE 94 mg/dL (74-118); SODIUM 140 mmol/L (136-145)
[2018-05-29 09:43] LABS: BASOPHILS # (AUTO) 0.1 (0.0-0.1); BASOPHILS % 0.5 % (0.0-1.0); EOSINOPHILS # (AUTO) 0.2 (0.0-0.4); EOSINOPHILS % 1.6 % (0.0-6.0); HEMATOCRIT 38.8 % (34.2-44.1); HEMOGLOBIN 12.3 g/dL (12.0-16.0); LYMPHOCYTES # (AUTO) 2.8 (1.0-3.2); LYMPHOCYTES % 26.8 % (18.0-39.1); MEAN CORPUSCULAR HEMOGLOBIN 29.1 pg (28-32); MEAN CORPUSCULAR HGB CONC 31.7 g/dL (31-35); MEAN CORPUSCULAR VOLUME 91.9 fL (81-99); MONOCYTES # (AUTO) 0.8 (0.2-0.8); MONOCYTES % 7.3 % (4.4-11.3); NEUTROPHILS # (AUTO) 6.7 (2.1-6.9); NEUTROPHILS % 63.6 % (38.7-80.0); PLATELET COUNT 248 x10e3/uL (140-360); RED BLOOD COUNT 4.22 x10e6/uL (3.6-5.1); RED CELL DISTRIBUTION WIDTH 12.7 % (11.7-14.4)
[2018-06-01] VITALS (7 sets, daily range): BP systolic 133–169; BP diastolic 75–91
[~2018-06-01] VITALS: Ht 157.5 cm; Wt 71.4 kg
[~2018-06-01 06:13] MED LIST changes: +PANTOPRAZOLE SO40 MG PO
--- OUTSIDE RECORDS SUMMARY | 2018-06-01 06:16 | XMS REPORT | Continuity of Care Document ---
Author Author [facility] Address Unknown Phone Unavailable Problems Problem Status Onset Date Classification Date Reported Comments Source R06 - ABNORMALITIES OF BREATHING Active 04/22/2018 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 No lung parenchymal or pleural abnormalities are seen. Karen and pulmonary vasculature are normal. The cardiac silhouette is mildly enlarged. A gas-filled moderately sized hiatal hernia is seen measuring 8.0 x 10.7 x 4.9 cm, relatively stable from the prior exam. No acute bony abnormality is identified. Multilevel spondylosis is seen in the thoracic spine. IMPRESSION: 1. No acute cardiopulmonary abnormality. 2. Large sliding hiatal hernia with adjacent minimal compressive subsegmental atelectasis in the left lower lobe. 3. Stable appearance of the chest when compared with 11/28/2014. 04/22/2018 - - Read by: Serge Bolivar MD Dictated Date/time: 04/22/18 10:39 Electronically Signed by: Serge Bolivar MD 04/22/18 10:[address] [facility] Vital Signs Vital Sign Value Date Comments Source Encounters Location Location Details Encounter Type Encounter Number Reason For Visit Attending Provider ADM Date DC Date Status Source [facility] [place] [facility] [id number] Sergio Salinas 04/22/2018 04/23/2018 [facility] [place] Procedures Procedure Code Date Perfomer Comments Source
--- OUTSIDE RECORDS SUMMARY | 2018-06-01 06:16 | XMS REPORT | Summary of Care ---
Author Author Yasmine Yu M.A. Organization Unknown Address [facility] Phone Unavailable Care Team Providers Care Telesales Professional Name Role Phone Yasmine Yu M.A. Unavailable Unavailable WERO Huang, NOHEMI Unavailable Unavailable JIMENEZ N.P., TALHA Unavailable Unavailable WERO CABA FL, NOHEMI Unavailable Unavailable Unavailable Unavailable Functional Status Name [...] Z23) Status: Active Bladder prolapse Status: Active Acute bronchitis due to other specified organisms (466.0, J20.8) Status: Active Cough (786.2, R05) Status: Active Tachycardia (785.0, R00.0) Status: Active Medications Name Dates Details Metoprolol Tartrate 50 MG Oral Tablet TAKE 1 TABLET BY MOUTH EVERY 12 HOURS Quantity: 180 SATTAR M.D., NOHEMI * Start : 20-Apr-2018 Active Esomeprazole Magnesium 40 MG Oral Capsule [...] 40 MG Oral Tablet TAKE 1 TABLET BY MOUTH EVERY DAY * Quantity: 90 Refills: 0 SATTAR M.D., NOHEMI * Start : 20-Apr-2018 Active Co Q 10 CAPS * Refills: 0 Active Ipratropium Kathleen 0.03 % Nasal Solution USE 2 SPRAYS IN EACH NOSTRIL 3 TIMES DAILY NEEDED FOR NASAL CONGESTION * Quantity: 1 Refills: 0 * Start : 14-Jul-2017 Active 30 ML Bottle Lisinopril 5 MG Oral Tablet TAKE 1/2 TABLET BY MOUTH EVERY DAY * Quantity: 45 Refills: 0 SATTAR M.D., NOHEMI * Start : 20-Apr-2018 Active Ferrous Sulfate 325 (65 Fe) MG [...] Start : 13-Jan-2018 Active 0.5 ML Syringe Azithromycin 250 MG Oral Tablet TAKE 2 TABLETS ON DAY 1 THEN TAKE 1 TABLET A DAY FOR 4 DAYS. * Quantity: 1 Refills: 0 JIMENEZ N.P., TALHA * Start : 21-Apr-2018 Active 6 Tablet Box Promethazine-Codeine 6.25-10 MG/5ML Oral Syrup TAKE 5 ML EVERY 4 TO 6 HOURS NEEDED FOR COUGH. * Quantity: 240 Refills: 0 JIMENEZ N.P., TALHA * Start : 21-Apr-2018 Active Benzonatate 100 MG Oral Capsule TAKE 1 CAPSULE 3 TIMES DAILY NEEDED. * Quantity: 63 Refills: 0 JIMENEZ N.P., TALHA * Start : 21-Apr-2018 Active Allergies and Adverse Reactions Name Dates [...] 0.5 ML Intramuscular Suspension Prefilled Syringe on: 1-Oct-2018 Family History Name Dates Details Family history [...] smoker Vital Signs Date Test Result Details [id number]-Inl-[id number]:53 Physical Findings 0 Status: Comments: Alcohol Screen - How many times in the past yr have you had 5 (for M) or 4 (for F) or 4 (for all > 65yrs) or more drinks in a day? :50 BP Systolic 136 mm[Hg] Status: Comments: Location: LUE; Position: Sitting BP Diastolic 92 mm[Hg] Status: Comments: Location: LUE; Position: Sitting Heart Rate 109 /min Status: 38-Iws-388142:49 BP Systolic 142 mm[Hg] Status: Comments: Location: LUE; Position: Sitting BP Diastolic 95 mm[Hg] Status: Comments: Location: LUE; Position: Sitting Heart Rate 109 /min Status: Height 62 in Status: Weight 142.5 lb Status: Body Mass Index Calculated 26.06 kg/m2 Status: Body Surface Area Calculated 1.66 m2 Status: Temperature 97.8 f Status: Comments: Method: Temporal Respiration Rate 16 /min Status: O2 SAT 97 % Status: Results Date Description Value Details 64-Xci-013744:18 [O] Flu Test (in Office ) Flu A neg (Normal) Flu B neg (Normal) 07-Kqa-742727:00 Tobacco Use Screening Completed DONE 65-Jjn-26090:38 XRAY Chest 2 views 34108 Chest 2 views SEE NOTES Comments: EXAM: XR CHEST 2 VIEWSDATE: 04/22/2018 9:38 CSTINDICATION: - coughCOMPARISON: 11/28/2014TECHNIQUE: PA and lateral chest radiographsFINDINGS: Mild compressive subsegmental atelectasis is seen along the leftborder of the hiatal hernia described below. No lung parenchymal or pleuralabnormalities are seen. Karen and pulmonary vasculature are normal. The cardiacsilhouette is mildly enlarged. A gas-filled moderately sized hiatal hernia isseen measuring 8.0 x 10.7 x 4.9 cm, relatively stable from the prior exam. Noacute bony abnormality is identified. Multilevel spondylosis is seen in thethoracic spine.IMPRESSION:1. No acute cardiopulmonary abnormality.2. Large sliding hiatal hernia with adjacent minimal compressive subsegmentalatelectasis in the left lower lobe.3. Stable appearance of the chest when compared with 11/28/2014.--Read by: Serge Bolivarictated Date/time: 04/22/18 10:39Electronically Signed by: Serge Bolivar MD 04/22/1909:42FINAL REPORT Plan of Care Name Dates Details Planned Observations Planned Goals not documented Instructions Name Dates Details Instructions not documented [...] Problem not documented On: 13-Jan-2018 13:15 Appointment; TALHA JIMENEZ NP Encounter Diagnosis: Problem not documented On: 21-Apr-2018 19:00
--- OUTSIDE RECORDS SUMMARY | 2018-06-01 06:16 | XMS REPORT | Summary of Care ---
Author Author [facility] Outpatient Imaging [facility] Outpatient [facility] Address Unknown Phone Unavailable Encounter HQ Encntr_alias(FIN) [id number] Date(s): 04/22/18 - 04/22/18 [facility] Outpatient Imaging [facility] [address] [facility], [address] [place] [phone] Discharge Disposition: Home or Self Care Attending Physician: Sergio Salinas MD Referring Physician: Sergio Salinas MD Vital Signs No data available for this section Problem List No data available for this section Allergies, Adverse Reactions, Alerts No data available for this section Medications No data available for this section Results No data available for this section Immunizations No data available for this section Procedures No data available for this section Social History No data available for this section Assessment and Plan No data available for this section
[2018-06-01] MEDS ORDERED: BUPIVACAINE 0.25%/EPI 30ML SDV INJ ONE (08:21)
[2018-06-01] MEDS ORDERED: FENTANYL CITRATE/PF 100MCG/2 ML INJ ONE ×2 (11:38→18:21)
[2018-06-01] MEDS ORDERED: HYDROMORPHONE 1MG/1ML INJ IV PRN (11:45)
[2018-06-01] MEDS: INSULIN REGULAR, HUMAN 100 UNIT/1 ML 3ML VIAL SQ SCH ×2 (12:00→18:00)
[2018-06-01] MEDS ORDERED: HYDROMORPHONE 2MG/ML 2 MG/ML ML ONE (12:08)
--- NOTE | 2018-06-01 12:22 | NUR ---
Patient admitted to unit from PACU. Patient is AAOx3. Patient is post op lap assisted hernia repair. 5 trochar sites clean and dry. No c/o pain at this time. Patient is NPO. NG tube in place to low suction. Right hand IV in place with IV fluids infusing. Spouse at bedside. Lung wright clear to auscultation. Bowel sounds absent at this time. No edema noted. Bilateral SCD's in place.
[2018-06-01] MEDS ORDERED: DEXTROSE 50% SYRINGE 50 ML IV PRN (12:30)
[2018-06-01] MEDS: SODIUM CHLORIDE 0.9% 1000ML 1,000 ML IV SCH (12:54)
[2018-06-01] MEDS: SODIUM CHLORIDE 0.9% 250ML IRRIG IR SCH ×4 (12:54→23:45)
[2018-06-01] MEDS: LISINOPRIL 2.5 MG TAB PO SCH (14:00)
[2018-06-01] MEDS: PANTOPRAZOLE 40 MG 10ML VIAL IV SCH (14:13)
[2018-06-01] MEDS: ACETAMINOPHEN 1000 MG/100 ML IV PRN (14:14)
--- NOTE | 2018-06-01 14:25 | NUR ---
Patient c/o left shoulder pain. PRN tylenol and scheduled protonix given. Will reassess.
[2018-06-01] MEDS ORDERED: CEPACOL SORE THROAT LOZENGES PO PRN (16:15)
[2018-06-01] MEDS: METOPROLOL TARTRATE 50 MG TAB PO SCH (16:49)
[2018-06-01] MEDS: ONDANSETRON HCL INJ 2MG/ML 2ML 2 MG/ML VIAL IV PRN (16:50)
[2018-06-01] MEDS: HYDROMORPHONE 2MG/ML 2 MG/ML ML IV PRN ×2 (16:50→21:55)
[2018-06-01] MEDS ORDERED: MIDAZOLAM HCL 2 MG/2 ML VIAL ONE (18:21)
[2018-06-01] MEDS ORDERED: ROCURONIUM BROMIDE 10 MG/ML 5ML VIAL ONE (18:44)
[2018-06-01] MEDS ORDERED: LIDOCAINE HCL 2% LOCAL INJ 5 ML SDV VIAL INJ ONE (18:44)
[2018-06-01] MEDS ORDERED: PROPOFOL IV EMULSION 10 MG/ML 20 ML VIAL ONE (18:44)
[2018-06-01] MEDS ORDERED: DEXAMETHASONE SOD PHOS INJ 4 MG/ML VIAL ONE (18:44)
[2018-06-01] MEDS ORDERED: GLYCOPYRROLATE INJ 1MG/ 5 ML SYR ONE (18:44)
[2018-06-01] MEDS ORDERED: ONDANSETRON HCL INJ 2MG/ML 2ML 2 MG/ML VIAL ONE (18:44)
[2018-06-01] MEDS ORDERED: SEVOFLURANE INHAL SOLN 250 ML PEN BTL ONE (18:44)
[2018-06-01] MEDS ORDERED: NEOSTIGMINE 5 MG/5ML SYR ONE (18:44)
[2018-06-01] MEDS ORDERED: EPHEDRINE SULFATE INJ 50 MG/10 ML SYR ONE (18:44)
--- NOTE | 2018-06-01 19:05 | NUR ---
RECEIVED PATIENT AAOX3, STABLE CONDITION, DENIES NEEDS. BED LOCKED AND IN LOWEST POSITION, CALL LIGHT WITHIN EASY REACH.
--- NOTE | 2018-06-01 19:10 | Operative Report ---
DATE OF PROCEDURE: 06/01/2018 SURGEON: Thomas Ruvalcaba MD PREOPERATIVE DIAGNOSES: Large hiatal hernia with rotational gastric volvulus and gastroesophageal reflux disease. POSTOPERATIVE DIAGNOSES: Large hiatal hernia with rotational gastric volvulus and gastroesophageal reflux disease. OPERATION PERFORMED: Laparoscopic repair of large hiatal hernia with Poly fundoplication. STRUCTURAL IRON ERECTOR: Aj Ruvalcaba M.D. ANESTHESIA: General endotracheal. COMPLICATIONS: None. ESTIMATED BLOOD LOSS: 30 mL. DESCRIPTION OF PROCEDURE: With the patient lying in bed in the supine position under good general endotracheal anesthesia, the abdomen was prepped with Betadine solution and draped in the usual manner. A Veress needle was introduced into the left mid abdomen and pneumoperitoneum was established without any difficulty. An 11 mm trocar was placed into the left mid abdomen and a 10 mm video laparoscope was placed into the intraabdominal cavity and under direct vision, three 5 mm trocars were placed in the subxiphoid and right upper abdomen and an 11 mm trocar was placed in the left lateral abdomen. Video laparoscopy at this point revealed a huge hiatal hernia with most of the patient's stomach up in the chest. There were a lot of adhesions up in the chest with a very large hernia sac present. We decided to go ahead and proceed with laparoscopic repair. The hernia sac was opened up on the right side of the crura and the right crura was identified and then followed up anteriorly all the way around to the left crura. The posterior esophagus was then freed up and the hernia was detached from the posterior esophagus. We then went from the greater curvature side and all of the short gastrics were taken down all the way up to the hiatus and the hernia sac on the left side was then slowly and carefully detached. All of the excess hernia sac was then resected off the mediastinum. The bougie was then placed and the crura appeared to be of good quality, so the hernia repair was performed first using interrupted stitches of 0 Ethibond, closed the hiatal hernia by approximating the right and left crura posterior to the esophagus, several sutures were necessary to close the large defect that was present, but this was closed without any tension. After this was done, the fundus of the stomach was then brought in a retroesophageal fashion without any difficulty and Poly fundoplication was then performed using three sutures anchoring the one side of the fundus to the lower esophagus to the underside of the fundus giving us a satisfactory repair of the area with a good floppy Poly fundoplication. The bougie was then removed and an NG tube was left in place. All the area was thoroughly irrigated, perfect hemostasis was ascertained. All of the excess fluid was aspirated. The pneumoperitoneum was evacuated and all the trocars were removed under direct vision. The fascia of the 11 mm trocar site was approximated with 0 Vicryl. All layers were infiltrated on the way out with solution of 0.25% Marcaine. Subcutaneous tissue was approximated with 3-0 Vicryl and all wounds were closed with subcuticular 5-0 Vicryl. Benzoin, Steri-Strips, and Band-Aids were applied. The sponge, lap, and needle count was correct. The patient tolerated the procedure well and returned to the recovery room in stable condition. MD ALVA Neumann/YARIEL /[id number]
[2018-06-02] MEDS: HYDROMORPHONE 2MG/ML 2 MG/ML ML IV PRN ×3 (02:43→16:44)
[2018-06-02] MEDS: SODIUM CHLORIDE 0.9% 1000ML 1,000 ML IV SCH ×3 (02:43→16:44)
[2018-06-02] MEDS: SODIUM CHLORIDE 0.9% 250ML IRRIG IR SCH ×3 (03:45→12:05)
[2018-06-02] MEDS: INSULIN REGULAR, HUMAN 100 UNIT/1 ML 3ML VIAL SQ SCH ×4 (06:00→16:44)
[2018-06-02 06:44] LABS: BASOPHILS % 0.1 % (0.0-1.0); EOSINOPHILS % 0.1 % (0.0-6.0); HEMATOCRIT 35.4 % (34.2-44.1); HEMOGLOBIN 11.3 g/dL (12.0-16.0); LYMPHOCYTES # (AUTO) 1.8 (1.0-3.2); LYMPHOCYTES % 19.1 % (18.0-39.1); MEAN CORPUSCULAR HEMOGLOBIN 29.3 pg (28-32); MEAN CORPUSCULAR HGB CONC 31.9 g/dL (31-35); MEAN CORPUSCULAR VOLUME 91.7 fL (81-99); MONOCYTES # (AUTO) 0.8 (0.2-0.8); MONOCYTES % 8.8 % (4.4-11.3); NEUTROPHILS # (AUTO) 6.8 (2.1-6.9); NEUTROPHILS % 71.6 % (38.7-80.0); PLATELET COUNT 230 x10e3/uL (140-360); RED BLOOD COUNT 3.86 x10e6/uL (3.6-5.1); RED CELL DISTRIBUTION WIDTH 13.2 % (11.7-14.4)
[2018-06-02 06:59] LABS: ANION GAP 11.7 mmol/L (8-16); BLOOD UREA NITROGEN 11 mg/dL (7-26); BUN/CREATININE RATIO 17 (6-25); CALCIUM 8.6 mg/dL (8.4-10.2); CARBON DIOXIDE 25 mmol/L (22-29); CHLORIDE 103 mmol/L (98-107); CREATININE, SERUM 0.64 mg/dL (0.57-1.11); EST GLOMERULAR FILTRATION RATE > 60 ML/MIN (60-); GLUCOSE 131 mg/dL (74-118); POTASSIUM 3.7 mmol/L (3.5-5.1); SODIUM 136 mmol/L (136-145)
--- NOTE | 2018-06-02 07:18 | NUR ---
Rcvd patient in report this am. Patient is asleep in bed at this time. No s/s of distress noted.
[2018-06-02 07:57] VITALS: BP 136/74
[2018-06-02] MEDS: LISINOPRIL 2.5 MG TAB PO SCH (08:54)
[2018-06-02] MEDS: METOPROLOL TARTRATE 50 MG TAB PO SCH ×2 (08:54→16:44)
[2018-06-02 09:35] VITALS: BP 136/74
[2018-06-02] MEDS: ACETAMINOPHEN 1000 MG/100 ML IV PRN ×2 (10:57→20:30)
--- NOTE | 2018-06-02 11:01 | NUR ---
Patient is AAOx3. Patient is post op lap assisted hernia repair. Trochar sites clean and dry. Lung wright clear to auscultation. Some wheezing noted on the left upper wright. Patient given incentive spirometer. PRN pain meds given. Patient assisted to ambulate in hallway. No s/s of distress noted. NG tube remains in place to suction. No nausea or vomiting noted. Right hand IV in place with IV fluids infusing.
[2018-06-02 12:42] VITALS: BP 132/68
--- NOTE | 2018-06-02 13:37 | NUR ---
Removed NG tube at this time. Patient tolerated well. Patient to remain NPO
[2018-06-02] MEDS: PANTOPRAZOLE 40 MG 10ML VIAL IV SCH (13:52)
--- NOTE | 2018-06-02 13:55 | NUR ---
Visit made by the Spiritual Care Department Pastoral Visitor, Molly Franks. PV provided pastoral presence, prayer, hospitality, and supportive listening. Pastoral Visitor informed pt/family of the scope of Pigment Making Supervisor Services and availability. MARKEL MURILLO Levi Maker Spiritual Care Department O: [phone] Pager: [phone] ([phone] number calling from)
--- NOTE | 2018-06-02 15:59 | NUR ---
Nutrition Screen Note RD Recommendation for Physician: -Rec advancing to GI soft/ ADA diet as medically appropriate Plan of Care: RD following, monitoring for tolerance and adequacy Nutrition reason for involvement: Nutrition Risk Trigger MST Primary Diagnose(s): hiatal hernia PMH: DM, HTN Ht: 62in Wt: 155.05lb BMI: 28.4kg/m2 IBW: 110lb RD Assessment: (06/02) Chart reviewed. Labs and meds reviewed. 62yo F, who was admitted for hernia repair. POD 1. Visited pt in the room. NGT to wall suction. Pt reported swallowing difficulty and decreased meal intake for many years due to her hernia. Reported UBW at ~135 140lbs (not suspecting any recent weight loss). After the surgery, pt denied any nausea or vomiting. Pt hasnt passed any gas yet. Will continue to monitor and follow. Current Diet: NPO Malnutrition Evaluation (06/02) The patient does not meet criteria for a specified degree of malnutrition at this time. Will re-evaluate at follow-up as appropriate. Diet Education Needs Assessment: Diet education not indicated. Nutrition Care Level: low Signed: Ita Santos, MS, RD, LD
[2018-06-02 16:04] VITALS: BP 131/74
[2018-06-02] MEDS: ONDANSETRON HCL INJ 2MG/ML 2ML 2 MG/ML VIAL IV PRN (16:44)
--- NOTE | 2018-06-02 19:05 | NUR ---
RECEIVED PATIENT IN RESTROOM, STABLE CONDITION. DENIES ANY NEEDS. WILL CONTINUE TO MONITOR PATIENT.
[2018-06-02 20:04] VITALS: BP 141/93
[2018-06-02 20:32] VITALS: BP 141/93
[2018-06-03] VITALS (8 sets, daily range): BP systolic 130–159; BP diastolic 68–89
[2018-06-03] MEDS: HYDROMORPHONE 2MG/ML 2 MG/ML ML IV PRN ×3 (01:50→13:11)
[2018-06-03] MEDS: ACETAMINOPHEN 1000 MG/100 ML IV PRN (05:02)
[2018-06-03] MEDS: SODIUM CHLORIDE 0.9% 1000ML 1,000 ML IV SCH ×3 (05:02→23:40)
[2018-06-03] MEDS: INSULIN REGULAR, HUMAN 100 UNIT/1 ML 3ML VIAL SQ SCH ×5 (06:00→20:51)
[2018-06-03 06:26] LABS: BASOPHILS % 0.4 % (0.0-1.0); EOSINOPHILS # (AUTO) 0.1 (0.0-0.4); EOSINOPHILS % 1.1 % (0.0-6.0); HEMATOCRIT 32.3 % (34.2-44.1); HEMOGLOBIN 10.1 g/dL (12.0-16.0); LYMPHOCYTES # (AUTO) 1.2 (1.0-3.2); LYMPHOCYTES % 14.8 % (18.0-39.1); MEAN CORPUSCULAR HEMOGLOBIN 29.3 pg (28-32); MEAN CORPUSCULAR HGB CONC 31.3 g/dL (31-35); MEAN CORPUSCULAR VOLUME 93.6 fL (81-99); MONOCYTES # (AUTO) 0.8 (0.2-0.8); MONOCYTES % 9.3 % (4.4-11.3); NEUTROPHILS # (AUTO) 6.1 (2.1-6.9); PLATELET COUNT 182 x10e3/uL (140-360); RED BLOOD COUNT 3.45 x10e6/uL (3.6-5.1); RED CELL DISTRIBUTION WIDTH 13.2 % (11.7-14.4)
[2018-06-03 06:44] LABS: ANION GAP 10.4 mmol/L (8-16); BLOOD UREA NITROGEN 8 mg/dL (7-26); BUN/CREATININE RATIO 14 (6-25); CALCIUM 8.2 mg/dL (8.4-10.2); CARBON DIOXIDE 24 mmol/L (22-29); CHLORIDE 106 mmol/L (98-107); CREATININE, SERUM 0.58 mg/dL (0.57-1.11); EST GLOMERULAR FILTRATION RATE > 60 ML/MIN (60-); GLUCOSE 87 mg/dL (74-118); POTASSIUM 3.4 mmol/L (3.5-5.1); SODIUM 137 mmol/L (136-145)
--- NOTE | 2018-06-03 07:00 | NUR ---
BEDSIDE ROUNDS COMPLETE NO DISTRESS NOTED, UPDATED ON POC VOICED UNDERSTANDING, DENIES PAIN AT THIS TIME, NO OTHER CO VOICED CALL LIGHT IN REACH WILL CONTINUE TO MONITOR
[2018-06-03] MEDS: LISINOPRIL 2.5 MG TAB PO SCH (08:25)
[2018-06-03] MEDS: ONDANSETRON HCL INJ 2MG/ML 2ML 2 MG/ML VIAL IV PRN ×2 (08:25→13:11)
[2018-06-03] MEDS: METOPROLOL TARTRATE 50 MG TAB PO SCH ×2 (08:25→17:13)
--- NOTE | 2018-06-03 08:25 | NUR ---
ASSESSMENT COMPLETE NO DISTRESS NOTED, UPDATED ON POC VOCIED UNDERSTANDING, CO PAIN 09/07 TO ABDOMEN MEDICATED WITH PRN MEDS, 6 TROCHAR SITES TO ABDOMEN WITH BAND AIDS APPLIED C/D/I, NO OTHER CO VOICED CALL LIGHT IN REACH WILL CONTINUE TO MONITOR
[2018-06-03] MEDS: PANTOPRAZOLE 40 MG 10ML VIAL IV SCH (14:35)
[2018-06-03] MEDS: ACETAMINOPHEN 325 MG TAB PO PRN (17:14)
--- NOTE | 2018-06-03 19:00 | NUR ---
BED SIDE SHIFT REPORT PERFORMED WITH OFF GOING NURSE Ward SCHMITT RN. PT IS AAOX3, RR EVEN AND NON-LABORED, ON RA. NO S/SX OF DISTRESS NOTED. X6 BANDAIDS NOTED TO ANTERIOR ABD. LEFT PT LAYING SEMI FOWLERS IN BED, BED IN LOW LOCKED POSITION, SIDE RAILS UPX2, CALL LIGHT AND PHONE WITHIN REACH.
[2018-06-04] VITALS: BP 161/88
--- NOTE | 2018-06-04 03:00 | NUR ---
PT ASSISTED TO BATHROOM, WHILE PT PERFORMING ADL'S PT REPORTS FEELING SOB. PT ASSISTED BACK TO BED. SPO2 NOTED TO BE 90%. APPLIED O2 2L BY NC. SPO2 INCREASED TO 96% AND PT REPORTS NO LONGER FEELING SOB. WILL CONTINUE TO MONITOR.
[2018-06-04 04:00] VITALS: BP 153/85
[2018-06-04] MEDS: SODIUM CHLORIDE 0.9% 1000ML 1,000 ML IV SCH (05:05)
[2018-06-04] MEDS: ACETAMINOPHEN 325 MG TAB PO PRN (05:05)
[2018-06-04 06:13] LABS: BASOPHILS % 0.3 % (0.0-1.0); EOSINOPHILS # (AUTO) 0.1 (0.0-0.4); EOSINOPHILS % 2.3 % (0.0-6.0); HEMATOCRIT 29.8 % (34.2-44.1); HEMOGLOBIN 9.6 g/dL (12.0-16.0); LYMPHOCYTES # (AUTO) 1.2 (1.0-3.2); LYMPHOCYTES % 18.7 % (18.0-39.1); MEAN CORPUSCULAR HEMOGLOBIN 29.7 pg (28-32); MEAN CORPUSCULAR HGB CONC 32.2 g/dL (31-35); MEAN CORPUSCULAR VOLUME 92.3 fL (81-99); MONOCYTES # (AUTO) 0.5 (0.2-0.8); NEUTROPHILS # (AUTO) 4.3 (2.1-6.9); NEUTROPHILS % 70.4 % (38.7-80.0); PLATELET COUNT 176 x10e3/uL (140-360); RED BLOOD COUNT 3.23 x10e6/uL (3.6-5.1); RED CELL DISTRIBUTION WIDTH 13.2 % (11.7-14.4)
[2018-06-04 06:22] LABS: ANION GAP 11.2 mmol/L (8-16); BLOOD UREA NITROGEN 5 mg/dL (7-26); BUN/CREATININE RATIO 9 (6-25); CALCIUM 8.4 mg/dL (8.4-10.2); CARBON DIOXIDE 25 mmol/L (22-29); CHLORIDE 103 mmol/L (98-107); CREATININE, SERUM 0.56 mg/dL (0.57-1.11); EST GLOMERULAR FILTRATION RATE > 60 ML/MIN (60-); GLUCOSE 87 mg/dL (74-118); POTASSIUM 3.2 mmol/L (3.5-5.1); SODIUM 136 mmol/L (136-145)
--- NOTE | 2018-06-04 07:00 | NUR ---
BEDSIDE ROUNDS COMPLETE NO DISTRESS NOTED, UPDATED ON POC VOICED UNDERSTANDING, DENIES PAIN AT THIS TIME, CALL LIGHT I REACH WILL CONTINUE TO MONITOR
[2018-06-04] MEDS: INSULIN REGULAR, HUMAN 100 UNIT/1 ML 3ML VIAL SQ SCH ×2 (07:30→11:30)
[2018-06-04 08:25] VITALS: BP 159/89
[2018-06-04] MEDS: HYDROMORPHONE 2MG/ML 2 MG/ML ML IV PRN (09:51)
[2018-06-04] MEDS: LISINOPRIL 2.5 MG TAB PO SCH (09:51)
[2018-06-04] MEDS: METOPROLOL TARTRATE 50 MG TAB PO SCH (09:51)
[2018-06-04 09:52] VITALS: BP 159/89
[2018-06-04] MEDS: ONDANSETRON HCL INJ 2MG/ML 2ML 2 MG/ML VIAL IV PRN (09:52)
--- NOTE | 2018-06-04 09:52 | NUR ---
ASSESSMENT COMPLETE NO DISTRESS NOTED, UPDATED ON POC VOICED UNDERSTANDING, CO PAIN 6/10 TO L SIDE/SHOULDER MEDICATED WITH PRN MEDS, IVF INFUSING TO R HAND 20G NO SS OF INFILTRATION NOTED, NO OTHER CO VOICED CALL LIGHT IN REACH WILL CONTINUE TO MONITOR
--- NOTE | 2018-06-04 13:46 | NUR ---
CASE MANAGEMENT INITIAL ASSESSMENT Promotions Intern to bedside to discuss plan of care with patient/family. CM/SW role and care transitions discussed. Anticipated discharge plan discussed along with duration of care. CM/SW discussed patients right to make decisions in care. CM work hours given. Patient lives: PATIENT LIVES IN [address] [facility] IN [facility] WITH Admit/Transfer: ED Hospital/ER visits since last admit: NO POA/Emergency contact: [address] [phone] Current/Previous Home Health: NONE PCP/Follow-up Care: DR. NOHEMI CONTEH Current/Previous DME: [facility] NOT A READMIT Medications (referring to index hospitalization or the first time you were in the hospital) a. Were changes made in your medications when you were in the hospital on [date of index hospitalization]? Yes No Not sure Explain: Note: If no or not sure, please skip to question d b. Did you understand the changes? Yes No Explain: c. Were you able to obtain your new medications right away? Yes Non/a SNF only Explain: d. Were you able to take your medications like the doctor wanted you to? Yes No Explain: e. Did the hospital give you an accurate, easy to understand list of medications when you left? Yes No n/a SNF only Explain: Scale of 1-10 how comfortable does patient feel with disease management in outpatient setting: Other Services: NONE Employment Status: EMPLOYED AT A HOSPITAL Areas of Concerns: NONE Referral Needs: NONE Education Needs: NONE IMM/ZARATE given and signed (if applicable): N/A Goal for discharge: DISCHARGE HOME WITH WITH NO NEEDS CM left business card at the bedside with contact information. Name and number was also written on the patients whiteboard. Patient verbalized understanding of discussion. CM will follow-up with ongoing discharge and transition of care needs.
[2018-06-04] MEDS: PANTOPRAZOLE 40 MG 10ML VIAL IV SCH (14:00)
[2018-06-04] MEDS ORDERED: NORCO 5-325 TA1 EACH PO (14:18)
== END 2018-06-04 14:41 | disposition home or self-care (01) | DRG 328 ==
LOC: OR 06:13 → PACU V 11:42 → MED/SURG 12:24
PROVIDERS: ADMIT Surgery; ATTEND Surgery
PROC: 0DV40ZZ Restriction of Esophagogastric Junction, Open Approach (ICD-10-PCS; 2018-06-01)
PROC: 0BQT0ZZ Repair Diaphragm, Open Approach (ICD-10-PCS; principal; 2018-06-01 08:34)
DX: K44.9 Diaphragmatic hernia without obstruction or gangrene (principal); K21.9 Gastro-esophageal reflux disease without esophagitis; K31.89 Other diseases of stomach and duodenum; I10 Essential (primary) hypertension; E11.9 Type 2 diabetes mellitus without complications
CPT/HCPCS: 36415; 80048; 80053; 82948; 85025; 88302; C1766; J1100; J2001; J2250; J2405; J7030

== ENCOUNTER → 2019-11-17 | Day surgery (SDC) | payer BC, OTHER ==
[2019-11-12 11:56] LABS: BASOPHILS # (AUTO) 0.1 (0.0-0.1); BASOPHILS % 0.9 % (0.0-1.0); EOSINOPHILS # (AUTO) 0.3 (0.0-0.4); EOSINOPHILS % 4.4 % (0.0-6.0); HEMATOCRIT 41.5 % (34.2-44.1); HEMOGLOBIN 12.7 g/dL (12.0-16.0); MEAN CORPUSCULAR HEMOGLOBIN 28.5 pg (28-32); MEAN CORPUSCULAR HGB CONC 30.6 g/dL (31-35); MEAN CORPUSCULAR VOLUME 93.3 fL (81-99); MONOCYTES # (AUTO) 0.4 (0.2-0.8); MONOCYTES % 6.4 % (4.4-11.3); PLATELET COUNT 177 x10e3/uL (140-360); RED BLOOD COUNT 4.45 x10e6/uL (3.6-5.1); RED CELL DISTRIBUTION WIDTH 12.8 % (11.7-14.4)
[~2019-11-17] MED LIST changes: +EPHEDRINE SULFATE INJ 50 MG/ML VIAL ONE; +FENTANYL CITRATE/PF 100MCG/2 ML INJ ONE; +GLUCAGON FOR INJ 1 MG VIAL ONE; +HYOSCYAMINE 0.125 MG TAB ONE; +LIDOCAINE HCL 2% LOCAL INJ 5 ML SDV VIAL INJ ONE; +METOCLOPRAMIDE HCL 10 MG/2ML VIAL ONE; +MIDAZOLAM HCL 2 MG/2 ML VIAL ONE; +NORCO 5-325 TA1 EACH PO; +PHENYLEPHRINE HCL 1% 10 MG/ML VIAL ONE; +PROPOFOL IV EMULSION 10 MG/ML 20 ML VIAL ONE
[2019-11-17 11:11] VITALS: BP 105/77
--- NOTE | 2019-11-17 11:24 | Operative Report ---
DATE OF PROCEDURE: 11/17/2019 SURGEON: Enrique Bustamante MD PROCEDURE: An EGD with polypectomy and biopsies and a colonoscopy with polypectomy. INDICATIONS FOR EGD: Upper abdominal pain and nausea. INDICATIONS FOR COLONOSCOPY: Colorectal cancer screening, father with rectal cancer, and personal history of colon polyps. MEDICATIONS: The patient was done under MAC. Please see anesthesiologist's note. PROCEDURE IN DETAIL: With the patient in left lateral decubitus position, the flexible fiberoptic Olympus gastroscope was introduced into the esophagus under direct visualization without any difficulty. There was some patchy erythema noted in the distal esophagus. A minute tongue approximately 1 cm in length extending approximately from the GE junction of velvety red mucosa suspicious for Pradhan's esophagus was biopsied. The scope was then advanced with ease into the stomach and a large amount of retained undigested food was noted in the stomach precluding visualization of the body along the greater curvature. The mucosa overlying the antrum and the distal body revealed some patchy intense erythema and moderate edema, and biopsies were obtained sent to stain for H pylori. Also, there was some hyperplastic appearing polyps noted in the body of the stomach and somewhat partially excised with the cold biopsy forceps. The pylorus was intubated with ease and the scope was advanced all the way to the second portion of the duodenum. Biopsies were obtained from the proximal second portion and the duodenal bulb to rule out sprue. The scope was then withdrawn back into the stomach and retroflexed and the patient is status post Poly fundoplication, which appeared intact. Whatever was visualized of the fundus appeared to be within normal limits. The scope was then straightened out, it was subsequently withdrawn. The patient tolerated the procedure well. IMPRESSION: 1. Distal esophagitis, mild. 2. Rule out Pradhan esophagus. 3. Poly fundoplication intact. 4. Gastritis, biopsied. Biopsies sent to stain for H pylori. 5. Gastric polyps, body, hyperplastic-appearing, some partially excised with the cold biopsy forceps. 6. Large amount of retained undigested food in stomach precluding visualization of the body of the stomach along the greater curvature. 7. Rule out sprue. PLAN: Follow up histology. Initiate Protonix 40 mg one p.o. q.a.m. before meals. PROCEDURE IN DETAIL: The patient was then turned around. After adequate lubrication of the anal canal, a flexible fiberoptic Olympus colonoscope was inserted into the rectum with ease and advanced all the way to the cecum. The cecum was only suboptimally visualized to the presence of a large amount of fecal material. The scope was then withdrawn slowly, and scattered amount of [id number] amount of retained fecal material was noted pretty much throughout the colon. An approximately 5 mm sessile polyp was noted in the distal sigmoid that was removed per snare electrocautery. The scope was then retroflexed into the distal rectum and the area around the dentate line appeared to be within normal limits. The scope was then straightened out, it was subsequently withdrawn. The patient tolerated the procedure well. IMPRESSION: 1. Suboptimal to poor prep. 2. Sigmoid colon polyp, hot snared. PLAN: Followup histology. The patient will need a repeat colonoscopy after a better prep. Enrique Bustamante MD [facility] [place] /[id number]
== END | disposition home or self-care (01) ==
LOC: OR 08:50
PROVIDERS: ATTEND Internal Medicine Gastroenterology
DX: Z12.11 Encounter for screening for malignant neoplasm of colon (principal); D12.5 Benign neoplasm of sigmoid colon; K31.7 Polyp of stomach and duodenum; K29.50 Unspecified chronic gastritis without bleeding; K20.9 Esophagitis, unspecified; K31.89 Other diseases of stomach and duodenum; K22.8 Other specified diseases of esophagus; K44.9 Diaphragmatic hernia without obstruction or gangrene; K59.00 Constipation, unspecified; I10 Essential (primary) hypertension; E11.9 Type 2 diabetes mellitus without complications; I47.1 Supraventricular tachycardia; Z01.810 Encounter for preprocedural cardiovascular examination; Z01.812 Encounter for preprocedural laboratory examination; Z11.59 Encounter for screening for other viral diseases; Z98.890 Other specified postprocedural states; Z79.84 Long term (current) use of oral hypoglycemic drugs; Z68.26 Body mass index [BMI] 26.0-26.9, adult; Z80.0 Family history of malignant neoplasm of digestive organs
CPT/HCPCS: 36415; 43239; 45385; 82948; 85025; 93005; J1610; J2001; J2250; J2370; J2765; J3010; U0002

== ENCOUNTER → 2020-07-06 | Day surgery (SDC) | payer BC ==
[2020-07-03 14:44] LABS: BASOPHILS % 0.5 % (0.0-1.0); EOSINOPHILS # (AUTO) 0.2 (0.0-0.4); EOSINOPHILS % 2.2 % (0.0-6.0); HEMATOCRIT 37.6 % (34.2-44.1); HEMOGLOBIN 11.9 g/dL (12.0-16.0); MEAN CORPUSCULAR HEMOGLOBIN 29.8 pg (28-32); MEAN CORPUSCULAR HGB CONC 31.6 g/dL (31-35); MONOCYTES # (AUTO) 0.6 (0.2-0.8); MONOCYTES % 7.4 % (4.4-11.3); NEUTROPHILS # (AUTO) 4.8 (2.1-6.9); NEUTROPHILS % 63.6 % (38.7-80.0); PLATELET COUNT 186 x10e3/uL (140-360)
[~2020-07-06] MED LIST changes: +ASPIRIN81 MG PO; -EPHEDRINE SULFATE INJ 50 MG/ML VIAL ONE; +FAMOTIDINE20 MG PO; -GLUCAGON FOR INJ 1 MG VIAL ONE; -HYOSCYAMINE 0.125 MG TAB ONE; +LOSARTAN POTASS25 MG PO; -METOCLOPRAMIDE HCL 10 MG/2ML VIAL ONE; -PHENYLEPHRINE HCL 1% 10 MG/ML VIAL ONE; +ULTRAM 50MG50 MG PO
[2020-07-06 15:35] VITALS: BP 108/79
[2020-07-06 16:05] LABS: WBC,FECAL (FECAL LACTOFERRIN) NEGATIVE (NEGATIVE)
[2020-07-07 08:41] LABS: C DIFFICILE TOXIN A&B AMP PROB NEGATIVE (NEGATIVE)
[2020-07-11 06:10] LABS: ENDOMYSIAL ANTIBODIES, IGA Negative (Negative)
== END | disposition home or self-care (01) ==
LOC: OR 12:13
PROVIDERS: ATTEND Internal Medicine Gastroenterology
DX: K59.01 Slow transit constipation (principal); D12.0 Benign neoplasm of cecum; D12.2 Benign neoplasm of ascending colon; K31.7 Polyp of stomach and duodenum; K29.60 Other gastritis without bleeding; K29.50 Unspecified chronic gastritis without bleeding; K52.9 Noninfective gastroenteritis and colitis, unspecified; K44.9 Diaphragmatic hernia without obstruction or gangrene; K20.90 Esophagitis, unspecified without bleeding; K62.89 Other specified diseases of anus and rectum; K64.8 Other hemorrhoids; G47.33 Obstructive sleep apnea (adult) (pediatric); I10 Essential (primary) hypertension; E11.9 Type 2 diabetes mellitus without complications; E78.00 Pure hypercholesterolemia, unspecified; Z01.810 Encounter for preprocedural cardiovascular examination; Z01.812 Encounter for preprocedural laboratory examination; Z20.822 Contact with and (suspected) exposure to COVID-19; Z79.84 Long term (current) use of oral hypoglycemic drugs; Z68.26 Body mass index [BMI] 26.0-26.9, adult; Z98.890 Other specified postprocedural states; Z86.73 Personal history of transient ischemic attack (TIA), and cerebral infarction without residual deficits; Z80.0 Family history of malignant neoplasm of digestive organs
CPT/HCPCS: 36415 ×2; 43239; 45380; 82784; 82948; 83516; 83630; 83993; 85025; 86256; 87045; 87177; 87328; 87493; 93005; J2001; J2250; J2704; J3010; U0002; 45378; 45384

== ENCOUNTER 2020-07-13 10:34 | Emergency (ER) | payer BC ==
[~2020-07-13] VITALS: Ht 157.5 cm; Wt 71.2 kg
[~2020-07-13 10:34] MED LIST changes: -FENTANYL CITRATE/PF 100MCG/2 ML INJ ONE; -LIDOCAINE HCL 2% LOCAL INJ 5 ML SDV VIAL INJ ONE; -MIDAZOLAM HCL 2 MG/2 ML VIAL ONE; -PROPOFOL IV EMULSION 10 MG/ML 20 ML VIAL ONE; -ULTRAM 50MG50 MG PO
[2020-07-13] MEDS ORDERED: HYDROCODONE/APAP 5MG-325MG TAB PO ONE ×2 (10:45→11:00)
[2020-07-13] MEDS ORDERED: ULTRAM 50MG50 MG PO (12:14)
== END 2020-07-13 13:05 | disposition home or self-care (01) ==
LOC: ER 10:36
DX: M25.562 Pain in left knee (principal); I10 Essential (primary) hypertension; E11.9 Type 2 diabetes mellitus without complications; E78.5 Hyperlipidemia, unspecified; Z86.73 Personal history of transient ischemic attack (TIA), and cerebral infarction without residual deficits
CPT/HCPCS: 93971; 99283

== ENCOUNTER 2020-07-17 12:39 | Emergency (ER) | payer OTHER, BC ==
[~2020-07-17] VITALS: Ht 157.5 cm; Wt 71.2 kg
[~2020-07-17 12:39] MED LIST changes: +ULTRAM 50MG50 MG PO
[2020-07-17 14:24] VITALS: BP 129/89
== END 2020-07-17 14:45 | disposition home or self-care (01) ==
LOC: ER 12:42
DX: S01.111A Laceration without foreign body of right eyelid and periocular area, initial encounter (principal); W01.0XXA Fall on same level from slipping, tripping and stumbling without subsequent striking against object, initial encounter; Y93.01 Activity, walking, marching and hiking; Y92.008 Other place in unspecified non-institutional (private) residence as the place of occurrence of the external cause; I10 Essential (primary) hypertension; E11.9 Type 2 diabetes mellitus without complications; E78.5 Hyperlipidemia, unspecified; Z86.73 Personal history of transient ischemic attack (TIA), and cerebral infarction without residual deficits
CPT/HCPCS: 70450; 72125; 99283

== ENCOUNTER → 2021-06-29 | Day surgery (SDC) | payer MEDICARE, BC ==
[~2021-06-29] MED LIST changes: +ATORVASTATIN CA40 MG PO; +CYMBALTA20 MG PO; +FENTANYL CITRATE/PF 100MCG/2 ML INJ ONE; +LIDOCAINE HCL 2% LOCAL INJ 5 ML SDV VIAL INJ ONE; +METOCLOPRAMIDE HCL 10 MG/2ML VIAL ONE; +MIDAZOLAM HCL 2 MG/2 ML VIAL ONE; +PROPOFOL IV EMULSION 10 MG/ML 20 ML VIAL ONE; +PROTONIX20 MG PO; +SODIUM CHLORIDE 0.9% 50ML 50 ML ONE
[2021-06-29 11:15] VITALS: BP 127/80
== END | disposition home or self-care (01) ==
LOC: OR 07:36
PROVIDERS: ATTEND Internal Medicine Gastroenterology
DX: K29.50 Unspecified chronic gastritis without bleeding (principal); K29.80 Duodenitis without bleeding; K31.89 Other diseases of stomach and duodenum; K20.90 Esophagitis, unspecified without bleeding; K44.9 Diaphragmatic hernia without obstruction or gangrene; T85.628A Displacement of other specified internal prosthetic devices, implants and grafts, initial encounter; Z71.3 Dietary counseling and surveillance; I10 Essential (primary) hypertension; E78.5 Hyperlipidemia, unspecified; E11.9 Type 2 diabetes mellitus without complications; F32.A Depression, unspecified; Y83.8 Other surgical procedures as the cause of abnormal reaction of the patient, or of later complication, without mention of misadventure at the time of the procedure; Z98.890 Other specified postprocedural states; Z01.812 Encounter for preprocedural laboratory examination; Z20.822 Contact with and (suspected) exposure to COVID-19; Z79.82 Long term (current) use of aspirin; Z79.84 Long term (current) use of oral hypoglycemic drugs; Z79.899 Other long term (current) drug therapy; Z68.28 Body mass index [BMI] 28.0-28.9, adult; Z86.73 Personal history of transient ischemic attack (TIA), and cerebral infarction without residual deficits; Z80.0 Family history of malignant neoplasm of digestive organs
CPT/HCPCS: 36415; 43239; 82948; 88305; 88312; C9113; J2001; J2704; J2765; U0002; 88304; J2250; J3010

== ENCOUNTER → 2023-12-12 | Day surgery (SDC) | payer BC, MEDICARE ==
[2023-12-09 15:14] LABS: BASOPHILS # (AUTO) 0.1 (0.0-0.1); BASOPHILS % 0.8 % (0.0-1.0); EOSINOPHILS # (AUTO) 0.2 (0.0-0.4); EOSINOPHILS % 2.2 % (0.0-6.0); HEMATOCRIT 41.8 % (34.2-44.1); HEMOGLOBIN 12.9 g/dL (12.0-16.0); LYMPHOCYTES # (AUTO) 2.8 (1.0-3.2); LYMPHOCYTES % 33.1 % (18.0-39.1); MEAN CORPUSCULAR HEMOGLOBIN 28.9 pg (28-32); MEAN CORPUSCULAR HGB CONC 30.9 g/dL (31-35); MEAN CORPUSCULAR VOLUME 93.7 fL (81-99); MONOCYTES # (AUTO) 0.5 (0.2-0.8); MONOCYTES % 6.2 % (4.4-11.3); NEUTROPHILS # (AUTO) 4.9 (2.1-6.9); NEUTROPHILS % 57.5 % (38.7-80.0); PLATELET COUNT 195 x10e3/uL (140-360); RED BLOOD COUNT 4.46 x10e6/uL (3.6-5.1); RED CELL DISTRIBUTION WIDTH 13.4 % (11.7-14.4); WHITE BLOOD COUNT 8.51 x10e3/uL (4.8-10.8)
[~2023-12-12] MED LIST changes: +CLARITIN-D 241 EACH PO; +DEXMEDETOMIDINE HCL 200 MCG/2 ML VIAL ONE; -FENTANYL CITRATE/PF 100MCG/2 ML INJ ONE; -METOCLOPRAMIDE HCL 10 MG/2ML VIAL ONE; +METOPROLOL SUCC50 MG PO; -MIDAZOLAM HCL 2 MG/2 ML VIAL ONE; -PROPOFOL IV EMULSION 10 MG/ML 20 ML VIAL ONE; +PROPOFOL IV EMULSION 10 MG/ML 50 ML VIAL IV ONE; -SODIUM CHLORIDE 0.9% 50ML 50 ML ONE
[2023-12-12] MEDS: LACTATED RINGER'S 1,000 ML ONE (08:05)
[2023-12-12] MEDS: ONDANSETRON HCL INJ 2MG/ML 2ML 2 MG/ML VIAL ONE (10:45)
[2023-12-12 11:00] VITALS: BP 151/88; PULSE 70; RESP 16; TEMP 97.1; O2SAT 99
== END | disposition home or self-care (01) ==
LOC: OR 07:09
PROVIDERS: ATTEND Internal Medicine Gastroenterology
DX: K59.00 Constipation, unspecified (principal); D12.3 Benign neoplasm of transverse colon; K28.9 Gastrojejunal ulcer, unspecified as acute or chronic, without hemorrhage or perforation; K29.70 Gastritis, unspecified, without bleeding; K21.9 Gastro-esophageal reflux disease without esophagitis; K44.9 Diaphragmatic hernia without obstruction or gangrene; E78.5 Hyperlipidemia, unspecified; E11.9 Type 2 diabetes mellitus without complications; M06.9 Rheumatoid arthritis, unspecified; I69.351 Hemiplegia and hemiparesis following cerebral infarction affecting right dominant side; Z01.810 Encounter for preprocedural cardiovascular examination; Z01.812 Encounter for preprocedural laboratory examination; Z79.84 Long term (current) use of oral hypoglycemic drugs; Z79.82 Long term (current) use of aspirin; Z79.899 Other long term (current) drug therapy; Z80.0 Family history of malignant neoplasm of digestive organs
CPT/HCPCS: 36415; 45385; 85025; 93005; J2001; J2405; J2704; J7121; 45378